=== PATIENT | male | born 1965 | race African-American/Black ===

== ENCOUNTER 2016-10-01 20:43 | Emergency (ER) | payer OTHER ==
[~2016-10-01] VITALS: Ht 182.9 cm; Wt 99.8 kg
[2016-10-01] MEDS ORDERED: ACETAMINOPHEN-1 EAC1 PO (21:46)
[2016-10-01 22:07] VITALS: BP 141/70
== END 2016-10-01 22:08 | disposition home or self-care (01) ==
LOC: ER 20:43
DX: S20.211A Contusion of right front wall of thorax, initial encounter (principal); R10.9 Unspecified abdominal pain; R61 Generalized hyperhidrosis; Z88.5 Allergy status to narcotic agent; Z88.8 Allergy status to other drugs, medicaments and biological substances; Z91.041 Radiographic dye allergy status; V03.09XA Pedestrian with other conveyance injured in collision with car, pick-up truck or van in nontraffic accident, initial encounter; Y93.89 Activity, other specified; Y92.89 Other specified places as the place of occurrence of the external cause; Y99.8 Other external cause status

== ENCOUNTER 2018-04-13 15:32 | Emergency (ER) | payer OTHER ==
[~2018-04-13] VITALS: Ht 182.9 cm; Wt 99.8 kg
[~2018-04-13 15:32] MED LIST: ACETAMINOPHEN-1 EAC1 PO
[2018-04-13] MEDS ORDERED: NORCO 5-325 TA1 EACH PO (17:08)
[2018-04-13] MEDS ORDERED: NORFLEX100 MG PO (17:08)
[2018-04-13] MEDS ORDERED: SENNA-DOCUSATE1 EACH PO (17:08)
[2018-04-13 17:56] VITALS: BP 130/81
== END 2018-04-13 17:57 | disposition home or self-care (01) ==
LOC: ER 15:32
DX: S40.012A Contusion of left shoulder, initial encounter (principal); S20.212A Contusion of left front wall of thorax, initial encounter; S80.02XA Contusion of left knee, initial encounter; S60.212A Contusion of left wrist, initial encounter; Z88.5 Allergy status to narcotic agent; Z88.6 Allergy status to analgesic agent; Z91.041 Radiographic dye allergy status; Y93.89 Activity, other specified; Y92.89 Other specified places as the place of occurrence of the external cause; Y99.8 Other external cause status

== ENCOUNTER 2018-04-25 18:58 | Emergency (ER) | payer OTHER ==
[~2018-04-25] VITALS: Ht 182.9 cm; Wt 102.1 kg
[~2018-04-25 18:58] MED LIST changes: +NORCO 5-325 TA1 EACH PO; +NORFLEX100 MG PO; +SENNA-DOCUSATE1 EACH PO
[2018-04-25 20:08] LABS: URINE BILIRUBIN NEGATIVE (Negative); URINE BLOOD NEGATIVE (Negative); URINE CLARITY CLEAR; URINE COLOR YELLOW; URINE GLUCOSE-RANDOM* NEGATIVE (Negative); URINE KETONES NEGATIVE (Negative); URINE LEUKOCYTES-REFLEX NEGATIVE (Negative); URINE NITRITE-REFLEX NEGATIVE (Negative); URINE PROTEIN (DIPSTICK) 1+ (Negative); URINE UROBILINOGEN 0.2 E.U./dl (0.2-1.0)
[2018-04-25 20:16] LABS: BACTERIA-REFLEX None Seen /HPF (None Seen); CASTS None Seen /LPF (None Seen); SQUAMOUS None Seen /LPF (0-3); URINE RBC 3-10 Few /HPF (0-2); URINE WBC-REFLEX 0-5 Rare /HPF (0-5)
[2018-04-25 20:17] LABS: AMORPHOUS PHOSPHATES Many /LPF (None Seen)
[2018-04-25 20:34] LABS: ABSOLUTE NEUTROPHILS 5.6 thou/uL (1.4-8.2); BASOPHILS 0.3 % (0.0-2.0); EOSINOPHILS 1.7 % (0.0-3.0); HEMATOCRIT 43.7 % (42.0-52.0); HEMOGLOBIN 14.6 gm/dL (14.0-18.0); LYMPHOCYTES 8.4 % (24.0-44.0); MCH 29.7 pg (26.0-34.0); MCHC 33.4 g/dL (28.0-37.0); MCV 88.9 fL (80.0-100.0); MONOCYTES 4.7 % (1.0-8.0); PLATELET COUNT 185 thou/uL (150-400); POLYS 84.9 % (36.0-66.0); RBC 4.92 mil/uL (4.50-6.00); RDW 14.1 % (10.5-14.5); WBC 6.5 thou/uL (4.0-11.0)
[2018-04-25 20:46] LABS: CREATININE 0.9 mg/dL (0.7-1.3); POTASSIUM 3.7 mmol/L (3.5-5.1)
[2018-04-25 20:52] LABS: ALBUMIN 4.1 g/dL (3.4-5.0); TOTAL BILIRUBIN 0.6 mg/dL (<0.1-1.0); TOTAL PROTEIN 7.7 g/dL (6.4-8.2)
[2018-04-25] MEDS ORDERED: ONDANSETRON HCL4 M2 PO (22:00)
[2018-04-25] MEDS ORDERED: BENTYL 20 MG TA20 M1 PO (22:00)
[2018-04-25 22:17] VITALS: BP 130/65
== END 2018-04-25 22:18 | disposition home or self-care (01) ==
LOC: ER 18:58
PROVIDERS: Nurse Practitioner Family
DX: I88.0 Nonspecific mesenteric lymphadenitis (principal); Z91.041 Radiographic dye allergy status; Z88.8 Allergy status to other drugs, medicaments and biological substances; Z88.5 Allergy status to narcotic agent; Z88.6 Allergy status to analgesic agent

== ENCOUNTER 2018-07-29 03:12 | Emergency (ER) | payer OTHER ==
[~2018-07-29] VITALS: Ht 182.9 cm; Wt 102.5 kg
[~2018-07-29 03:12] MED LIST changes: +BENTYL 20 MG TA20 M1 PO; +ONDANSETRON HCL4 M2 PO
[2018-07-29 03:59] LABS: HEMATOCRIT 42.3 % (42.0-52.0); HEMOGLOBIN 14.1 gm/dL (14.0-18.0); MCH 29.3 pg (26.0-34.0); MCHC 33.3 g/dL (28.0-37.0); MCV 88.2 fL (80.0-100.0); PLATELET COUNT 228 thou/uL (150-400); RDW 13.8 % (10.5-14.5); WBC 9.6 thou/uL (4.0-11.0)
[2018-07-29 04:01] LABS: URINE BILIRUBIN NEGATIVE (Negative); URINE BLOOD 2+ (Negative); URINE CLARITY CLEAR; URINE COLOR YELLOW; URINE GLUCOSE-RANDOM* NEGATIVE (Negative); URINE KETONES NEGATIVE (Negative); URINE NITRITE-REFLEX NEGATIVE (Negative); URINE PROTEIN (DIPSTICK) 1+ (Negative); URINE SPECIFIC GRAVITY >= 1.030 (1.005-1.035); URINE UROBILINOGEN 0.2 E.U./dl (0.2-1.0)
[2018-07-29 04:05] LABS: CREATININE 1.1 mg/dL (0.7-1.3); POTASSIUM 3.6 mmol/L (3.5-5.1)
[2018-07-29 04:07] LABS: URINE LEUKOCYTES-REFLEX 2+ (Negative)
[2018-07-29 04:15] LABS: CASTS None Seen /LPF (None Seen); MUCUS 0-3 Light strn/LPF (None Seen); SQUAMOUS 0-3 Few /LPF (0-3); URINE WBC-REFLEX >25 Many /HPF (0-5)
[2018-07-29 04:16] LABS: BACTERIA-REFLEX 1-9 Few /HPF (None Seen); CRYSTALS None Seen /LPF (None Seen); TRANSITIONAL EPITHEL CELL 0-3 Few /LPF (None Seen); URINE RBC 3-10 Few /HPF (0-2)
[2018-07-29 04:20] LABS: ABSOLUTE NEUTROPHILS 6.8 thou/uL (1.4-8.2); ATYPICAL LYMPHS 9 %; MYELOCYTES 1 %
[2018-07-29 04:21] LABS: LARGE PLATELETS RARE
[2018-07-29] MEDS ORDERED: CIPROFLOXACIN500 M1 PO (05:43)
[2018-07-29] MEDS ORDERED: ULTRAM 50MG TAB50 MG PO (05:57)
[2018-07-29 06:09] VITALS: BP 119/66
== END 2018-07-29 06:10 | disposition home or self-care (01) ==
LOC: ER 03:12
PROVIDERS: Student in an Organized Health Care Education/Training Program
DX: N41.9 Inflammatory disease of prostate, unspecified (principal); N49.0 Inflammatory disorders of seminal vesicle; Z88.5 Allergy status to narcotic agent; Z88.6 Allergy status to analgesic agent; Z91.041 Radiographic dye allergy status

== ENCOUNTER 2018-07-30 10:01 | Emergency (ER) | payer OTHER ==
[~2018-07-30] VITALS: Ht 182.9 cm; Wt 102.5 kg
[~2018-07-30 10:01] MED LIST changes: +CIPROFLOXACIN500 M1 PO; +ULTRAM 50MG TAB50 MG PO
[2018-07-30 13:46] VITALS: BP 141/78
== END 2018-07-30 11:00 | disposition home or self-care (01) ==
LOC: ER 10:01
DX: A54.9 Gonococcal infection, unspecified (principal); Z91.041 Radiographic dye allergy status; Z88.8 Allergy status to other drugs, medicaments and biological substances; Z88.5 Allergy status to narcotic agent; Z88.6 Allergy status to analgesic agent

== ENCOUNTER 2018-08-04 17:33 | Emergency (ER) | payer OTHER ==
[~2018-08-04] VITALS: Ht 182.9 cm; Wt 102.1 kg
[2018-08-04 19:05] LABS: ABSOLUTE NEUTROPHILS 5.6 thou/uL (1.4-8.2); EOSINOPHILS 2.7 % (0.0-3.0); HEMATOCRIT 41.5 % (42.0-52.0); HEMOGLOBIN 14.5 gm/dL (14.0-18.0); LYMPHOCYTES 23.5 % (24.0-44.0); MCH 30.6 pg (26.0-34.0); MCHC 34.9 g/dL (28.0-37.0); MCV 87.7 fL (80.0-100.0); MONOCYTES 9.4 % (1.0-8.0); PLATELET COUNT 281 thou/uL (150-400); POLYS 63.4 % (36.0-66.0); RBC 4.73 mil/uL (4.50-6.00); WBC 8.8 thou/uL (4.0-11.0)
[2018-08-04 19:14] LABS: CALCIUM 9.2 mg/dL (8.5-10.1); POTASSIUM 3.4 mmol/L (3.5-5.1)
[2018-08-04 19:20] LABS: ALBUMIN 3.7 g/dL (3.4-5.0); ALBUMIN 3.8 g/dL (3.4-5.0); DIRECT BILIRUBIN 0.1 mg/dL (<0.1-0.3); MAGNESIUM 2.3 mg/dL (1.8-2.4); TOTAL BILIRUBIN 0.4 mg/dL (<0.1-1.0); TOTAL PROTEIN 8.3 g/dL (6.4-8.2)
[2018-08-04] MEDS ORDERED: DOXYCYCLINE 10100 M1 PO (19:46)
[2018-08-04] MEDS ORDERED: NORCO 5-325 TA1 EACH PO (20:08)
[2018-08-04] MEDS ORDERED: MIRALAX17 GM PO (20:08)
[2018-08-04] MEDS ORDERED: ACETAMINOPHEN-1 EAC1 PO (20:26)
[2018-08-04 20:33] VITALS: BP 126/75
== END 2018-08-04 20:36 | disposition home or self-care (01) ==
LOC: ER 17:33
PROVIDERS: Emergency Medicine; Student in an Organized Health Care Education/Training Program
DX: M60.9 Myositis, unspecified (principal); Z91.041 Radiographic dye allergy status; Z88.8 Allergy status to other drugs, medicaments and biological substances; Z88.5 Allergy status to narcotic agent; Z88.6 Allergy status to analgesic agent

== ENCOUNTER 2018-08-22 23:14 | Emergency (ER) | payer OTHER ==
[~2018-08-22] VITALS: Ht 182.9 cm; Wt 102.1 kg
[~2018-08-22 23:14] MED LIST changes: +DOXYCYCLINE 10100 M1 PO; +MIRALAX17 GM PO
[2018-08-23 00:25] LABS: URINE BILIRUBIN NEGATIVE (Negative); URINE BLOOD 1+ (Negative); URINE CLARITY CLEAR; URINE COLOR YELLOW; URINE GLUCOSE-RANDOM* NEGATIVE (Negative); URINE KETONES NEGATIVE (Negative); URINE LEUKOCYTES-REFLEX NEGATIVE (Negative); URINE NITRITE-REFLEX NEGATIVE (Negative); URINE PROTEIN (DIPSTICK) NEGATIVE (Negative); URINE SPECIFIC GRAVITY <= 1.005 (1.005-1.035); URINE UROBILINOGEN 0.2 E.U./dl (0.2-1.0)
[2018-08-23 00:32] LABS: BACTERIA-REFLEX None Seen /HPF (None Seen); CASTS None Seen /LPF (None Seen); CRYSTALS None Seen /LPF (None Seen); MUCUS None Seen strn/LPF (None Seen); SQUAMOUS 0-3 Few /LPF (0-3); URINE RBC 3-10 Few /HPF (0-2); URINE WBC-REFLEX None Seen /HPF (0-5)
[2018-08-23] MEDS ORDERED: NORFLEX100 MG PO (00:51)
[2018-08-23] MEDS ORDERED: ULTRAM 50MG TAB50 MG PO (00:51)
[2018-08-23 00:54] VITALS: BP 116/54
== END 2018-08-23 01:02 | disposition home or self-care (01) ==
LOC: ER 23:14
PROVIDERS: Emergency Medicine
DX: S39.012A Strain of muscle, fascia and tendon of lower back, initial encounter (principal); Z91.041 Radiographic dye allergy status; Z88.8 Allergy status to other drugs, medicaments and biological substances; Z88.5 Allergy status to narcotic agent; Z88.6 Allergy status to analgesic agent; X50.0XXA Overexertion from strenuous movement or load, initial encounter; Y92.89 Other specified places as the place of occurrence of the external cause; Y93.89 Activity, other specified; Y99.8 Other external cause status

== ENCOUNTER 2018-08-27 20:34 | Emergency (ER) | payer OTHER ==
[~2018-08-27] VITALS: Ht 182.9 cm; Wt 103.4 kg
[2018-08-27 21:18] LABS: URINE BILIRUBIN NEGATIVE (Negative); URINE BLOOD TRACE (Negative); URINE CLARITY CLEAR; URINE COLOR YELLOW; URINE GLUCOSE-RANDOM* NEGATIVE (Negative); URINE KETONES TRACE (Negative); URINE LEUKOCYTES-REFLEX NEGATIVE (Negative); URINE NITRITE-REFLEX NEGATIVE (Negative); URINE PROTEIN (DIPSTICK) NEGATIVE (Negative); URINE SPECIFIC GRAVITY 1.025 (1.005-1.035); URINE UROBILINOGEN 0.2 E.U./dl (0.2-1.0)
[2018-08-27] MEDS ORDERED: MEDROLDOSEPACK PO (21:29)
[2018-08-27] MEDS ORDERED: NORCO 5-325 TA1 EACH PO (21:29)
[2018-08-27 21:40] VITALS: BP 144/70
== END 2018-08-27 21:40 | disposition home or self-care (01) ==
LOC: ER 20:34
PROVIDERS: Physician Assistant
DX: S39.012A Strain of muscle, fascia and tendon of lower back, initial encounter (principal); X58.XXXA Exposure to other specified factors, initial encounter; Y93.89 Activity, other specified; Y92.89 Other specified places as the place of occurrence of the external cause; Y99.8 Other external cause status

== ENCOUNTER 2019-06-04 21:00 | Emergency (ER) | payer OTHER ==
[~2019-06-04] VITALS: Ht 182.9 cm; Wt 97.5 kg
[~2019-06-04 21:00] MED LIST changes: +MEDROLDOSEPACK PO
[2019-06-04] MEDS ORDERED: MEDROLDOSEPACK PO (22:00)
[2019-06-04] MEDS ORDERED: NORCO 5-325 TA1 EAC1 PO (22:00)
[2019-06-04] MEDS ORDERED: NORFLEX100 MG PO (22:00)
[2019-06-04 22:15] VITALS: BP 121/77
== END 2019-06-04 22:22 | disposition home or self-care (01) ==
LOC: ER 21:00
DX: S39.012A Strain of muscle, fascia and tendon of lower back, initial encounter (principal); G89.29 Other chronic pain; Z91.041 Radiographic dye allergy status; Z88.8 Allergy status to other drugs, medicaments and biological substances; Z88.5 Allergy status to narcotic agent; Z88.6 Allergy status to analgesic agent; X50.1XXA Overexertion from prolonged static or awkward postures, initial encounter; Y92.89 Other specified places as the place of occurrence of the external cause; Y93.89 Activity, other specified; Y99.8 Other external cause status

== ENCOUNTER 2019-06-23 22:35 | Emergency (ER) | payer OTHER ==
[~2019-06-23] VITALS: Ht 182.9 cm; Wt 99.8 kg
[~2019-06-23 22:35] MED LIST changes: +NORCO 5-325 TA1 EAC1 PO
[2019-06-23 23:37] VITALS: BP 142/65
== END 2019-06-23 23:48 | disposition home or self-care (01) ==
LOC: ER 22:35
DX: N50.89 Other specified disorders of the male genital organs (principal); M54.9 Dorsalgia, unspecified; G89.29 Other chronic pain; Z91.041 Radiographic dye allergy status; Z88.8 Allergy status to other drugs, medicaments and biological substances; Z88.5 Allergy status to narcotic agent; Z88.6 Allergy status to analgesic agent

== ENCOUNTER → 2020-08-05 | Emergency (ER) | payer OTHER ==
[~2020-08-05] VITALS: Ht 182.9 cm; Wt 99.8 kg
[~2020-08-05] MED LIST changes: +ALEVE; +TYLENOL
[2020-08-05 06:41] VITALS: BP 136/77
== END ==
LOC: ER 06:37
DX: R07.81 Pleurodynia (principal); Z53.21 Procedure and treatment not carried out due to patient leaving prior to being seen by health care provider